=== PATIENT | male | born 1945 | race Caucasian/White ===

== ENCOUNTER 2017-06-13 17:44 | Emergency (ER) | payer MEDICARE ==
[2017-06-13 17:53] VITALS: BP 159/92; PULSE 94; RESP 18; TEMP 98.6
[2017-06-13] MEDS ORDERED: SODIUM CHLORIDE 0.9% 500 ML IV STA (17:59)
[2017-06-13] MEDS ORDERED: RX INFO: IV CONTRAST WAS GIVEN 1 EACH MISC MISCELLANE PRN (17:59)
[2017-06-13] MEDS ORDERED: ONDANSETRON 4 MG/2 ML VIAL IVP STA (17:59)
[2017-06-13] MEDS ORDERED: MORPHINE SULFATE 5 MG/ML SYRINGE IV STA (17:59)
--- NOTE | 2017-06-13 18:16 | ED ---
Abdominal Pain HPI - General Chief Complaint: Abdominal Pain Stated Complaint: Stomach pain Time Seen by Provider: 06/13/17 17:54 Source: patient, RN notes reviewed Mode of arrival: ambulatory Limitations: no limitations - History of Present Illness Initial Comments: This a 71-year-old male presents emergency Department with chief complaint of lower abdominal pain. Patient states that he's had a known umbilical hernia states he was working on a truck today wrenching and states that he noticed it had increase in pain from his umbilicus down. Patient denies nausea, vomiting, diarrhea constipation. He states nothing makes the pain feel better at this time states worse when pressed over the area. He's never been evaluated by a surgeon for this hernia. Patient did not take any pain medications prior arrival. Patient states pain is pretty bad at this time. Patient has NO KNOWN DRUG ALLERGIES. - Related Data Home Medications Medication Instructions Recorded Confirmed Ascorbic Acid [Vitamin C] 500 mg PO DAILY 06/13/17 06/13/17 HYDROcodone/APAP 10-325MG [[place] 1 tab PO BID PRN 06/13/17 06/13/17 10-325] Ibuprofen [Advil] 1,000 mg PO Q8HR PRN 06/13/17 06/13/17 Multivitamins, Thera [Multivitamin 1 tab PO DAILY 06/13/17 06/13/17 (formulary)] Allergies Allergy/AdvReac Type Severity Reaction Status Date / Time No Known Allergies Allergy Verified 06/13/17 18:07 Review of Systems ROS Statement: Those systems with pertinent positive or pertinent negative responses have been documented in the HPI. ROS Other: All systems not noted in ROS Statement are negative. Past Medical History Past Medical History: Hyperlipidemia, Hypertension Additional Past Medical History / Comment(s): Umbilical hernia History of Any Multi-Drug Resistant Organisms: None Reported Past Surgical History: Orthopedic Surgery Additional Past Surgical History / Comment(s): nose surgery, ANKLE SURGERY ON RIGHT ANKLE WITH SCREWS AND PLATES Past Anesthesia/Blood Transfusion Reactions: No Reported Reaction Past Psychological History: Depression Smoking Status: Current every day smoker Past Alcohol Use History: None Reported Past Drug Use History: Marijuana - Past Family History Father Family Medical History: No Reported History General Exam Limitations: no limitations General appearance: alert, in no apparent distress Head exam: Present: atraumatic, normocephalic, normal inspection Respiratory exam: Present: normal lung sounds bilaterally. Absent: respiratory distress, wheezes, rales, rhonchi, stridor Cardiovascular Exam: Present: regular rate, normal rhythm, normal heart sounds. Absent: systolic murmur, diastolic murmur, rubs, gallop, clicks GI/Abdominal exam: Present: soft, tenderness (Periumbilical tenderness and lower abdominal), normal bowel sounds, hernia (Umbilical hernia noted which is reducible). Absent: distended, guarding, rebound, rigid Back exam: Absent: CVA tenderness (R), CVA tenderness (L) Neurological exam: Present: alert, oriented X3, CN II-XII intact Skin exam: Present: warm, dry, intact, normal color. Absent: rash Course Vital Signs 06/13/17 17:50 Temperature 98.6 F Pulse Rate 94 Respiratory 18 Rate Blood Pressure 159/92 O2 Sat by Pulse 96 Oximetry Medical Decision Making - Medical Decision Making 71-year-old male present emergency department for abdominal pain, umbilical hernia. Patient worsening pain of his umbilical hernia. Patient hernia was reduced in the emergency department. Patient still complained of some discomfort initially underwent lab work which was unremarkable CT ordered but patient refused stating that his pain has completely resolved. We did discuss return parameters. Patient will follow-up with on-call surgery. - Lab Data Result diagrams: 06/13/17 18:07 06/13/17 18:07 Lab Results 06/13/17 06/13/17 06/13/17 Range/Units 18:07 18:07 18:07 WBC 7.9 (3.8-10.6) k/uL RBC 4.78 (4.30-5.90) m/uL Hgb 16.3 (13.0-17.5) gm/dL Hct 47.7 (39.0-53.0) % MCV 99.8 (80.0-100.0) fL MCH 34.0 (25.0-35.0) pg MCHC 34.1 (31.0-37.0) g/dL RDW 12.6 (11.5-15.5) % Plt Count 191 (150-450) k/uL Neutrophils % 67 % Lymphocytes % 20 % Monocytes % 6 % Eosinophils % 4 % Basophils % 1 % Neutrophils # 5.3 (1.3-7.7) k/uL Lymphocytes # 1.6 (1.0-4.8) k/uL Monocytes # 0.5 (0-1.0) k/uL Eosinophils # 0.3 (0-0.7) k/uL Basophils # 0.1 (0-0.2) k/uL PT (9.0-12.0) sec INR (<1.2) APTT (22.0-30.0) sec Sodium 139 (137-145) mmol/L Potassium 4.1 (3.5-5.1) mmol/L Chloride 106 (98-107) mmol/L Carbon Dioxide 23 (22-30) mmol/L Anion Gap 10 mmol/L BUN 17 (9-20) mg/dL Creatinine 0.90 (0.66-1.25) mg/dL Est GFR (MDRD) Af Amer >60 (>60 ml/min/1.73 sqM) Est GFR (MDRD) Non-Af >60 (>60 ml/min/1.73 sqM) Glucose 139 H (74-99) mg/dL Plasma Lactic Acid Yefri 1.2 (0.7-2.0) mmol/L Calcium 9.6 (8.4-10.2) mg/dL Total Bilirubin 0.4 (0.2-1.3) mg/dL AST 42 (17-59) U/L ALT 46 (21-72) U/L Alkaline Phosphatase 140 H (38-126) U/L Total Protein 7.4 (6.3-8.2) g/dL Albumin 4.4 (3.5-5.0) g/dL Amylase 74 (30-110) U/L Lipase 175 (23-300) U/L Urine Color Urine Appearance (Clear) Urine pH (5.0-8.0) Ur Specific [place] (1.001-1.035) Urine Protein (Negative) Urine Glucose (UA) (Negative) Urine Ketones (Negative) Urine Blood (Negative) Urine Nitrite (Negative) Urine Bilirubin (Negative) Urine Urobilinogen (<2.0) mg/dL Ur Leukocyte Esterase (Negative) Urine RBC (0-5) /hpf Urine WBC (0-5) /hpf Urine Mucus (None) /hpf 06/13/17 06/13/17 Range/Units 18:07 18:23 WBC (3.8-10.6) k/uL RBC (4.30-5.90) m/uL Hgb (13.0-17.5) gm/dL Hct (39.0-53.0) % MCV (80.0-100.0) fL MCH (25.0-35.0) pg MCHC (31.0-37.0) g/dL RDW (11.5-15.5) % Plt Count (150-450) k/uL Neutrophils % % Lymphocytes % % Monocytes % % Eosinophils % % Basophils % % Neutrophils # (1.3-7.7) k/uL Lymphocytes # (1.0-4.8) k/uL Monocytes # (0-1.0) k/uL Eosinophils # (0-0.7) k/uL Basophils # (0-0.2) k/uL PT 9.9 (9.0-12.0) sec INR 1.0 (<1.2) APTT 24.0 (22.0-30.0) sec Sodium (137-145) mmol/L Potassium (3.5-5.1) mmol/L Chloride (98-107) mmol/L Carbon Dioxide (22-30) mmol/L Anion Gap mmol/L BUN (9-20) mg/dL Creatinine (0.66-1.25) mg/dL Est GFR (MDRD) Af Amer (>60 ml/min/1.73 sqM) Est GFR (MDRD) Non-Af (>60 ml/min/1.73 sqM) Glucose (74-99) mg/dL Plasma Lactic Acid Yefri (0.7-2.0) mmol/L Calcium (8.4-10.2) mg/dL Total Bilirubin (0.2-1.3) mg/dL AST (17-59) U/L ALT (21-72) U/L Alkaline Phosphatase (38-126) U/L Total Protein (6.3-8.2) g/dL Albumin (3.5-5.0) g/dL Amylase (30-110) U/L Lipase (23-300) U/L Urine Color Yellow Urine Appearance Clear (Clear) Urine pH 5.0 (5.0-8.0) Ur Specific [place] 1.014 (1.001-1.035) Urine Protein Negative (Negative) Urine Glucose (UA) Negative (Negative) Urine Ketones Negative (Negative) Urine Blood Negative (Negative) Urine Nitrite Negative (Negative) Urine Bilirubin Negative (Negative) Urine Urobilinogen <2.0 (<2.0) mg/dL Ur Leukocyte Esterase Trace H (Negative) Urine RBC 1 (0-5) /hpf Urine WBC 2 (0-5) /hpf Urine Mucus Rare H (None) /hpf Disposition Clinical Impression: Umbilical hernia, Abdominal pain Disposition: HOME SELF-CARE Condition: Stable Instructions: Umbilical Hernia (ED) Additional Instructions: Please return to the Emergency Department if symptoms worsen or any other concerns. Referrals: Luca Pandya MD [Primary Care Provider] - 1-2 days Diogo Hooker MD [STAFF PHYSICIAN] - 1-2 days Time of Disposition: 18:49
[2017-06-13 18:23] LABS: Basophils # (A) 0.1 k/uL (0-0.2); Basophils % (A) 1 %; Eosinophils # (A) 0.3 k/uL (0-0.7); Eosinophils % (A) 4 %; HCT 47.7 % (39.0-53.0); HGB 16.3 gm/dL (13.0-17.5); Lymphocytes # (A) 1.6 k/uL (1.0-4.8); Lymphocytes % (A) 20 %; MCHC 34.1 g/dL (31.0-37.0); MCV 99.8 fL (80.0-100.0); Mean Platelet Volume 6.7; Monocytes # (A) 0.5 k/uL (0-1.0); Monocytes % (A) 6 %; Neutrophils # (A) 5.3 k/uL (1.3-7.7); Neutrophils % (A) 67 %; Platelet Count 191 k/uL (150-450); RBC 4.78 m/uL (4.30-5.90); RDW 12.6 % (11.5-15.5); WBC 7.9 k/uL (3.8-10.6)
[2017-06-13 18:25] LABS: Prothrombin Time 9.9 sec (9.0-12.0)
[2017-06-13 18:27] LABS: ALT 46 U/L (21-72); AST 42 U/L (17-59); Albumin 4.4 g/dL (3.5-5.0); Alkaline Phosphatase 140 U/L (38-126); Amylase 74 U/L (30-110); Anion Gap 10 mmol/L; Blood Urea Nitrogen 17 mg/dL (9-20); Calcium 9.6 mg/dL (8.4-10.2); Carbon Dioxide 23 mmol/L (22-30); Chloride 106 mmol/L (98-107); Glucose 139 mg/dL (74-99); Lipase 175 U/L (23-300); Potassium 4.1 mmol/L (3.5-5.1); Sodium 139 mmol/L (137-145); Total Bilirubin 0.4 mg/dL (0.2-1.3); Total Protein 7.4 g/dL (6.3-8.2)
[2017-06-13 18:29] LABS: Appearance,Urine Clear (Clear); Bilirubin,Urine Negative (Negative); Blood,Urine Negative (Negative); Color,Urine Yellow; Glucose,Urine (UA) Negative (Negative); Ketones,Urine Negative (Negative); Leukocyte Esterase,Urine Trace (Negative); Mucus,Urine Rare /hpf; Nitrite,Urine Negative (Negative); Protein,Urine Negative (Negative); RBC,Urine 1 /hpf (0-5); Specific Gravity,Urine 1.014 (1.001-1.035); Urobilinogen,Urine <2.0 mg/dL (<2.0); WBC,Urine 2 /hpf (0-5)
== END 2017-06-13 18:55 | disposition home or self-care (01) ==
LOC: EC 17:44
DX: K42.9 Umbilical hernia without obstruction or gangrene (principal); F17.200 Nicotine dependence, unspecified, uncomplicated; Z79.899 Other long term (current) drug therapy; Z53.29 Procedure and treatment not carried out because of patient's decision for other reasons
CPT/HCPCS: 99284; 96374; 96361; 36415; 80053; 82150; 83605; 83690; 85025; 85610; 85730; 81001; J2405

== ENCOUNTER → 2021-03-26 | Outpatient (CLI) | payer MEDICARE | END | disposition home or self-care (01) | LOC: LABPAT 15:41 | PROVIDERS: ATTEND Orthopaedic Surgery | DX: Z01.812 Encounter for preprocedural laboratory examination (principal); M16.12 Unilateral primary osteoarthritis, left hip; Z22.322 Carrier or suspected carrier of Methicillin resistant Staphylococcus aureus | CPT/HCPCS: 86850; 86900; 86901; 87070 ==

== ENCOUNTER 2021-06-21 11:02 | Day surgery (SDC) | payer MEDICARE ==
[2021-05-31 15:26] VITALS: BMI 34.8
--- NOTE | 2021-06-20 11:07 | HP ---
HISTORY AND PHYSICAL DATE OF SURGERY: 06/21/2021 Aamir Dupree is a 75-year-old gentleman seen with symptomatic left hip osteoarthritis. Treatment options were discussed with him. He elected to proceed with direct anterior left total hip arthroplasty. Consent was obtained. Medical clearance was provided by Dr. Kincaid. PAST MEDICAL HISTORY: Hypertension, hyperlipidemia, tdx-rhzdfru-uquubpzil diabetes. PAST SURGICAL HISTORY: Ankle surgery. DAILY MEDICATIONS: Glipizide, lisinopril, simvastatin, Cialis. ALLERGIES: NONE REPORTED. SOCIAL HISTORY: He denies tobacco use. PHYSICAL EVALUATION OF THE LEFT HIP: He has very limited range of motion with severe pain. Positive hip impingement sign. Straight-leg raise negative. His distal neurovascular exam is intact. Radiographs of the left hip reveal severe osteoarthritic changes. IMPRESSION: 1. Left hip osteoarthritis. 2. Hypertension. 3. Hyperlipidemia. 4. Rgr-onjhdua-xmwhlokmu diabetes. PLAN: Direct anterior left total hip arthroplasty. MMODL / IJN: [id number] /
[~2021-06-21 11:02] MED LIST: ACETAMINOPHEN TAB 500 MG TAB PO PRN; DEXAMETHASONE SOD PHOSPHATE 4 MG/ML 1 ML VIAL IV ONE; LIDOCAINE 1% (10MG/ML) FOR IV START INTRADERMA PRN; MELOXICAM 7.5 MG TAB PO PRN; MIDAZOLAM 2 MG/2 ML VIAL IV PRN; ONDANSETRON 4 MG/2 ML VIAL IVP ONE; TRANEXAMIC ACID 1,000 MG in SODIUM CHLORIDE 0.9% 100 ML IVPB PRN
[2021-06-21] MEDS: LACTATED RINGERS 1,000 ML IV SCH ×2 (12:21→18:09)
[2021-06-21 12:28] LABS: Glucose,Whole Blood 188 mg/dL (75-99)
[2021-06-21] MEDS ORDERED: LIDOCAINE 1% INJ 10MG/ML (20 ML MDV) ONE (13:03)
[2021-06-21] MEDS ORDERED: TRANEXAMIC ACID 1,000 MG/10 ML VIAL ONE (13:03)
[2021-06-21] MEDS ORDERED: GLYCOPYRROLATE 0.2 MG/ML 2 ML VIAL ONE (13:03)
[2021-06-21] MEDS ORDERED: PROPOFOL 10 MG/ML 20 ML VIAL IV ONE (13:03)
[2021-06-21] MEDS ORDERED: NEOSTIGMINE 1 MG/ML 10 ML VIAL ONE (13:03)
[2021-06-21] MEDS ORDERED: PHENYLEPHRINE-0.9% NACL SYG 1,000 MCG/10 ML SYRINGE ONE (13:03)
[2021-06-21] MEDS ORDERED: SODIUM CHLORIDE 0.9% 100 ML BAG ONE (13:03)
[2021-06-21] MEDS ORDERED: HYDROmorphone (PF) 1 MG/ML ONE (13:03)
[2021-06-21] MEDS ORDERED: ROCURONIUM 10 MG/ML (5 ML VIAL) IV ONE (13:03)
[2021-06-21] MEDS ORDERED: SUCCINYLCHOLINE CHLORIDE VIAL 200 MG/10 ML VIAL IV ONE (13:03)
[2021-06-21] MEDS ORDERED: MIDAZOLAM 2 MG/2 ML VIAL ONE (13:03)
[2021-06-21] MEDS ORDERED: fentaNYL (PF) 50 MCG/ML 2 ML AMP ONE (13:03)
[2021-06-21] MEDS ORDERED: ceFAZolin 1,000 MG in SODIUM CHLORIDE 0.9% 1,000 ML IRRIGATION ONE (13:35)
[2021-06-21] MEDS ORDERED: ROPIVACAINE/EPI/CLONIDINE/KET 50 ML SYRINGE MISCELLANE PRN (13:46)
[2021-06-21] MEDS ORDERED: LACTATED RINGERS 1,000 ML IV ONE ×2 (14:18→14:37)
--- NOTE | 2021-06-21 14:35 | FL ---
EXAMINATION TYPE: FL guidance operating room DATE OF EXAM: 06/21/2021 HISTORY: Fluoroscopy time 10 seconds of fluoroscopy provided. IMPRESSION: 1. Fluoroscopy time.
--- NOTE | 2021-06-21 14:35 | XR ---
EXAMINATION TYPE: XR Hip Limited LT DATE OF EXAM: 06/21/2021 COMPARISON: NONE HISTORY: Postop TECHNIQUE: One view submitted. FINDINGS: There is postsurgical change in near anatomic alignment. There is soft tissue edema and emphysema. IMPRESSION: 1. Postoperative change. Appears in near-anatomic alignment.
[2021-06-21] MEDS ORDERED: NALOXONE 0.4 MG/ML 1 ML VIAL IV PRN (14:37)
[2021-06-21] MEDS ORDERED: ONDANSETRON 4 MG/2 ML VIAL IVP PRN (14:37)
[2021-06-21] MEDS ORDERED: HYDROcodone/APAP 5-325MG 1 EACH TAB PO PRN (14:37)
[2021-06-21] MEDS ORDERED: HYDROmorphone 0.5 MG/0.5 ML SYRINGE IVP PRN ×2 (14:37)
[2021-06-21] MEDS ORDERED: HYDROmorphone 0.2 MG/1 ML SYRINGE IM PRN (14:37)
--- NOTE | 2021-06-21 14:37 | P.OP ---
Date of Procedure: 06/21/21 Preoperative Diagnosis: Left hip osteoarthritis Postoperative Diagnosis: Left hip osteoarthritis Procedure(s) Performed: Direct anterior left total hip arthroplasty Implants: 1. Depuy Corail size 15 high offset collared press-fit femoral stem 2. Depuy [place] 62 mm press-fit acetabular shell 3. Depuy [place] +4 neutral polyethylene acetabular liner 36 mm ID 62 mm OD 4. Biolox delta ceramic femoral head +1.5 36 mm Anesthesia: JODIA, local Surgeon: Shar Juarez Color Consultant #1: Sean Keller Estimated Blood Loss (ml): 200 Pathology: other (Femoral head) Condition: stable Disposition: PACU Indications for Procedure: 75-year-old patient seen with symptomatic left hip osteoarthritis. After having treatment options discussed, he elected to proceed with direct anterior left total hip arthroplasty. Operative Findings: See description of procedure Description of Procedure: The patient was taken to the operative suite. Patient underwent a general anesthetic by the department of anesthesia. Patient was then transferred to the [place] table. Patient was given preoperative IV antibiotics and TXA. Both lower extremities were placed in standard leg spars. The hip was then prepped and draped in the normal sterile orthopedic fashion. A standard anterior incision was made beginning 3 cm lateral and 1 cm distal to the ASIS extending 10 cm. Dissection was then carried down through the subcutaneous soft tissues down to the fascia overlying the tensor fascia ambika. An incision was now made through the fascia. Careful dissection was taken down exposing the tensor fascia ambika muscle. A Cobra retractor was now placed along the medial femoral neck and a second one along the lateral femoral neck. The venous circumflex vessels were now identified, cauterized and clipped. We identified the anterior hip capsule. An incision was made through the hip capsule along the lateral border. I performed a partial anterior capsulectomy. Retractors were now placed around the femoral neck itself. A femoral neck cut was now made with a sagittal saw. It was completed with an osteotome at the lateral neck area. The femoral head was now removed without difficulty. The extremity was now rotated to 60 of external rotation. It was locked in position. Residual labrum was now debrided out. Serial reaming was performed of the acetabulum while Gilbert LEMUS assisted holding an anterior retractor for exposure. Once we reached the appropriate size and a trial was position and fit nicely. The appropriate size was now chosen opened and made available. It was introduced into the acetabulum without difficulty. The C-arm/fluoroscopy was now brought into the operative field. We made sure we had a true AP pelvic view. We now under direct C-arm/fluoroscopy introduced into the acetabular component with appropriate version and inclination. I held the cup in appropriate position well Gilbert LEMUS used a mallet to seat the acetabular component. I noted the component now to be well seated and stable. Acetabular cup introduce her was removed. The C-arm was pulled back. An appropriate liner was introduced and clicked into position. It was felt to be stable. At this point retractors were removed. The extremity was now placed into 140 external rotation with no traction. The leg was now dropped to the ground and adducted. Appropriate retractors were now positioned along the proximal femur. We also placed our femoral look into position. Additional capsular releasing was performed to gain access to the proximal femur. We now used a box osteotome. A canal finder was now utilized. Serial broaching was now performed with the assistance of Gilbert LEMUS tapping the broaches down with a mallet while held the broach in appropriate rotation and position. This was done until we reached the appropriate size with good overall rotational stability. Appropriate calcar planing was performed. A trial head/neck was placed into position. The hip was now reduced. The C- arm/fluoroscopy was brought back into the operative field. I obtained AP pelvis demonstrating adequate leg length. The trial components appeared appropriately sized and positioned. The C-arm/fluoroscopy was pulled back. Retractors were repositioned and the hip was dislocated. The leg was again taken down to the ground and adducted. Appropriate retractors were repositioned as well as the femoral hook. All trial components were removed. The femoral implant was opened along with the femoral head. The femoral implant was introduced on the appropriate handle into our pre-broached area. I held the component position well Gilbert LEMUS used a mallet to seat the femoral component. The femoral component was now noted to be well seated and stable.. The femoral head was introduced with good positioning and fixation noted. Retractors were now removed. The hip was now reduced. There appeared be good positioning of the hip confirmed on intraoperative fluoroscopy. Spot films were obtained to document this. A second gram of TXA was given. The deep and superficial soft tissues were infiltrated with local analgesic. Bipolar cautery had been ut ilized intermittently through the procedure for hemostasis. The wound was irrigated copiously with pulse lavage mechanical irrigation. The fascia was repaired with Vicryl suture. The subcutaneous soft tissues were repaired in layers with Vicryl suture. The skin was approximated with pernio/Dermabond. Sterile dressings were applied. Patient was then awakened, transferred to a bed and taken to recovery in stable condition. Gilbert LEMUS assisted with the complex procedure.
[2021-06-21] MEDS: HYDROmorphone 0.5 MG/0.5 ML SYRINGE IVP PRN ×3 (15:06→16:03)
[2021-06-21 15:17] LABS: Glucose,Whole Blood 197 mg/dL (75-99)
[2021-06-21 20:43] LABS: Glucose,Whole Blood 257 mg/dL (75-99)
--- NOTE | 2021-06-22 02:46 | P.CONS ---
History of Present Illness - Reason for Consult Consult date: 06/21/21 medical management Requesting physician: Shar Juarez - Chief Complaint left hip OA - History of Present Illness 75-year-old male with hypertension diabetes mellitus Patient comes in for scheduled left hip total arthroplasty due to severe advanced osteoarthritis. Patient tolerated procedure well patient was able to walk using a walker and he tolerated by mouth intake no observed immediate postop complications pain is well tolerated and controlled Patient has no new medical concerns Patient chews tobacco home and is asking for nicotine gum Review of Systems Pertinent positives as noted in HPI. All other systems were reviewed and are negative Past Medical History Past Medical History: Diabetes Mellitus, Hyperlipidemia, Hypertension, Osteoarthritis (OA) Additional Past Medical History / Comment(s): Umbilical hernia History of Any Multi-Drug Resistant Organisms: None Reported Past Surgical History: Orthopedic Surgery Additional Past Surgical History / Comment(s): NOSE SURGERY., ANKLE SURGERY RIGHT ANKLE WITH SCREWS AND PLATES Past Anesthesia/Blood Transfusion Reactions: No Reported Reaction, Unable to Obtain Additional Past Anesthesia/Blood Transfusion Reaction / Comm: PT ADOPTED. Past Psychological History: Anxiety, Depression Smoking Status: Former smoker Past Alcohol Use History: Occasional Additional Past Alcohol Use History / Comment(s): QUIT SMOKING 3 YRS AGO, HX OF 2 PPD.,. CHEWING TOBACCO CURRENTLY. Past Drug Use History: Marijuana Additional Drug Use History / Comment(s): OCCASSIONAL MARIJUANA USE - Past Family History Father Family Medical History: Cancer Medications and Allergies Home Medications Medication Instructions Recorded Confirmed Type Ascorbic Acid [Vitamin C] 1,000 mg PO DAILY 06/13/17 06/14/21 History HYDROcodone/APAP 10-325MG [[place] 1 tab PO TID PRN 06/13/17 06/21/21 History 10-325] Ibuprofen [Advil] 800 mg PO DIRECTED PRN 06/13/17 06/14/21 History Acetaminophen/Diphenhydramine 1 tab PO HS PRN 05/31/21 06/21/21 History [Tylenol PM 500-25mg] Bismuth Subsalicylate 262 mg PO DIRECTED PRN 05/31/21 06/14/21 History [Pepto-Bismol] Multivit-Min/Folic/Vit K/Lycop 1 each PO DAILY 05/31/21 06/14/21 History [Men's Multivitamin Tablet] Sertraline [Zoloft] 50 mg PO QAM 05/31/21 06/14/21 History glipiZIDE [Glucotrol] 10 mg PO DAILY 05/31/21 06/21/21 History guaiFENesin [Mucinex] 1,200 mg PO DIRECTED 05/31/21 06/21/21 History lisinopriL 40 mg PO QAM 05/31/21 06/14/21 History L.acidoph,Paracasei, B.lactis 1 dose PO DAILY 06/14/21 06/21/21 History [Probiotic] Allergies Allergy/AdvReac Type Severity Reaction Status Date / Time No Known Allergies Allergy Verified 06/21/21 11:43 Physical Exam Vitals: Vital Signs Temp Pulse Pulse Resp BP BP Pulse Ox 06/21/21 20:00 98.4 F 91 18 117/68 96 06/21/21 19:08 18 06/21/21 16:55 94 16 121/55 96 06/21/21 16:40 88 16 132/55 97 06/21/21 16:25 86 16 135/64 94 L 06/21/21 16:10 91 16 126/54 95 06/21/21 15:56 89 16 122/56 92 L 06/21/21 15:40 86 16 138/62 95 06/21/21 15:24 83 16 141/67 97 06/21/21 15:09 73 16 130/61 97 06/21/21 14:54 97.1 F L 67 18 119/59 97 06/21/21 12:00 98.5 F 69 18 135/58 98 Intake and Output 06/21/21 06/21/21 06/22/21 14:59 22:59 06:59 Intake Total 1151 600 Output Total 200 Balance 951 600 Intake: IV 1151 600 Output: Estimated Blood Loss 200 Other: Voiding Method Toilet Urinal # Voids 1 Weight 119.2 kg 119.2 kg Constitutional: No acute distress, conversant, pleasant Eyes: Anicteric sclerae, moist conjunctiva, Pupils equal round reactive to light ENMT: NC/AT Oropharynx clear, no erythema, or exudates Neck: Supple, FROM, no masses, or JVD No carotid bruits No thyromegaly Lungs: Clear to auscultation Clear to percussion Normal respiratory effort, no accessory muscle use Cardiovascular: Heart regular in rate and rhythm, No murmurs, gallops, or rubs No peripheral edema Abdominal: Soft Nontender, no guarding, rebound or rigidity Abdomen moving with respiration Normoactive bowel sounds No hepatomegaly, No splenomegaly No palpable mass No abdominal wall hernia noted Skin: Normal temperature, tone, texture, turgor No induration No subcutaneous nodules No rash, lesions No ulcers Extremities: No digital cyanosis No clubbing Pedal pulses intact and symmetrical Radial pulses intact and symmetrical No calf tenderness Psychiatric: Alert and oriented to person, place and time Appropriate affect fair judgement Neuro Muscles Strength 5/5 in all 4 extremities limited exam over her left lower extremity due to recent surgery Sensation to light touch grossly present throughout Cranial nerves II-XII grossly intact No focal sensory deficits Lymphatics: no palpable cervical or supraclavicular , or inguinal lymph nodes Results Labs: Abnormal Lab Results - Last 24 Hours (Table) 06/21/21 06/21/21 06/21/21 Range/Units 12:17 15:15 20:42 POC Glucose (mg/dL) 188 H 197 H 257 H (75-99) mg/dL Assessment and Plan Assessment: Left hip osteoarthritis status post total hip replacement postoperative day 0 Pain control and DVT prophylaxis per orthopedics Chronic conditions Diabetes mellitus, insulin sliding scale, hold oral hypoglycemic agents Hyperlipidemia Hypertension resume lisinopril Follow-up BMP and CBC in the morning Patient chews tobacco, nicotine gum prn Thank you for allowing us to participate in the care of this patient. Do not hesitate to contact us with questions. Someone can be reached from the [facility] hospitalist group at all hours of the day at [phone].
[2021-06-22] MEDS ORDERED: NICOTINE GUM (POLACRILEX) 2 MG GUM BUCCAL PRN (02:48)
[2021-06-22 03:24] VITALS: TEMP 98.1
[2021-06-22] MEDS: LACTATED RINGERS 1,000 ML IV SCH ×2 (05:47→06:03)
[2021-06-22 06:41] LABS: Glucose,Whole Blood 180 mg/dL (75-99)
[2021-06-22] MEDS ORDERED: INSULIN ASPART (NovoLOG) 100 UNIT/ML VIAL SQ SCH (07:30)
[2021-06-22] MEDS: HYDROcodone/APAP 5-325MG 1 EACH TAB PO PRN ×2 (07:51→12:23)
[2021-06-22] MEDS: INSULIN ASPART (NovoLOG) 100 UNIT/ML VIAL SQ SCH ×2 (08:01→12:17)
[2021-06-22] MEDS ORDERED: lisinopriL 20 MG TAB PO SCH (09:00)
[2021-06-22] MEDS ORDERED: SERTRALINE 50 MG TAB PO SCH (09:00)
[2021-06-22 09:35] LABS: Basophils # (A) 0.02 X 10*3/uL (0.00-0.10); Basophils % (A) 0.2 %; Eosinophils # (A) 0.01 X 10*3/uL (0.04-0.35); Eosinophils % (A) 0.1 %; HCT 41.7 % (39.6-50.0); HGB 13.1 g/dL (13.0-17.0); Lymphocytes # (A) 1.25 X 10*3/uL (0.90-5.00); Lymphocytes % (A) 10.1 %; MCH 31.2 pg (27.0-32.0); MCHC 31.4 g/dL (32.0-37.0); MCV 99.3 fL (80.0-97.0); Mean Platelet Volume 9.3 fL (9.5-12.2); Monocytes # (A) 1.43 X 10*3/uL (0.20-1.00); Monocytes % (A) 11.5 %; Neutrophils # (A) 9.68 X 10*3/uL (1.80-7.70); Neutrophils % (A) 77.8 %; Platelet Count 191 X 10*3/uL (140-440); RDW 13.5 % (11.5-14.5); WBC 12.43 X 10*3/uL (4.50-10.00)
[2021-06-22 09:50] LABS: African American GFR (CKD) 86.3 (60.0-200.0); Anion Gap 13.9 mmol/L (10.00-18.00); BUN/Creat Ratio 19.82 Ratio (12.00-20.00); Blood Urea Nitrogen 19.8 mg/dL (9.0-27.0); Carbon Dioxide 23.8 mmol/L (20.0-27.5); Non-African American GFR(CKD) 74.4 (60.0-200.0); Potassium 4.8 mmol/L (3.5-5.5)
--- NOTE | 2021-06-22 11:05 | P.DS ---
Providers Date of admission: 06/21/2021 Expected date of discharge: 06/22/21 Attending physician: Shar Juarez Consults: 06/21/21 18:57 Consult Physician Routine Consulting Provider: Alma Larson Consult Reason/Comments: medical management Do you want consulting provider notified?: Yes Primary care physician: Stated None Hospital Course: Date of admission: 06/21/2021 Date of discharge: 06/22/2021 Admission diagnosis: Left hip osteoarthritis Discharge diagnosis: Same Attending physician: Dr. Juarez Surgical procedures: Left total hip arthroplasty Brief history: Patient is a 75-year-old male with a history of progressive primary left hip osteoarthritis. At this point patient has failed conservative treatment measures and has opted to proceed with a elective left total hip arthroplasty. Hospital course: Details of patient's surgery can be found in operative report. Patient tolerated the procedure well and was subsequently transported to orthopedic floor. Patient's orthopeidc and medical care was provided daily. Patient had daily laboratory tests performed for evaluation of overall blood counts. Patient had daily physical therapy to include strengthening range of motion as well as education with walker ambulation. Patient was treated with Lovenox for their postoperative DVT prophylaxis during their inpatient stay. Patient was noted to have a relatively uneventful postoperative course. Patient reported satisfactory pain control with oral pain medications by postoperative day 1. Patient showed satisfactory progress with physical therapy. Patient moved steadily through the program and had no difficulty meeting the goals by postoperative day 1. Given patient's otherwise satisfactory course and having met physical therapy goals, plan is to discharge patient home on postoperative day 1. Discharge condition/disposition: Patient will be discharged home in stable condition. Discharge medications: Instructions are given on resumption of patient's normal daily medications per primary care recommendation, in addition patient will be prescribed [place] 7.5 mg/325 mg; aspirin 81 mg twice a day 30 days; Colace. Discharge instructions: 1. Wound care and infection precautions, keep incision dry and covered while showering, no lotions, creams, moisturizers. No soaking, tubs, pools, hottubs. Do not scrub over the incision. 2. Weight-bear as tolerated with walker / cane until follow-up. 3. Ice and elevate when necessary. Do not exceed 20 minutes per hour with ice pack. 4. Utilize compression sleeve until seen at first follow up appointment. 5. Visiting nursing care. 6. Home physical therapy. 7. Pain meds and anticoagulants per prescription. 8. Pain medication has potential to cause constipation. Increase oral fluid and fiber intake. Contact primary care provider if you have not had a bowel movement within 48 hours after discharge 9. No anti-inflammatory medication until discussed at first post operative visit, this including Motrin, Aleve, Mobic, Diclofenac. 10. Follow up in office at 2 weeks postop with Gilbert Keller PA-C / Neo Lange PA-C 11. Follow up with your primary care doctor 7-10 days after discharge. 12. Contact [facility] with any questions, . Keep incision clean, dry, intact. While showering, cover silver foam dressing was Saran wrap. Silver foam dressing may be removed in 7 days. Medications: Colace; [place] 7.5 mg/25 mg; aspirin 81 mg twice a day 30 days Assessment: Left hip osteoarthritis Procedures: Left total hip arthroplasty Patient Condition at Discharge: Good Plan - Discharge Summary Discharge Rx Participant: No New Discharge Prescriptions: New HYDROcodone/APAP 7.5-325MG [[place] 7.5] 1 each PO Q6HR PRN #28 tab PRN Reason: Pain Aspirin [Adult Low Dose Aspirin EC] 81 mg PO BID #60 tab Docusate [Colace] 100 mg PO DAILY #30 capsule Discontinued HYDROcodone/APAP 10-325MG [[place] 10-325] 1 tab PO TID PRN PRN Reason: Pain No Action Ibuprofen [Advil] 800 mg PO DIRECTED PRN PRN Reason: Pain Ascorbic Acid [Vitamin C] 1,000 mg PO DAILY lisinopriL 40 mg PO QAM guaiFENesin [Mucinex] 1,200 mg PO DIRECTED glipiZIDE [Glucotrol] 10 mg PO DAILY Multivit-Min/Folic/Vit K/Lycop [Men's Multivitamin Tablet] 1 each PO DAILY Sertraline [Zoloft] 50 mg PO QAM Acetaminophen/Diphenhydramine [Tylenol PM 500-25mg] 1 tab PO HS PRN PRN Reason: Insomnia Bismuth Subsalicylate [Pepto-Bismol] 262 mg PO DIRECTED PRN PRN Reason: Diarrhea L.acidoph,Paracasei, B.lactis [Probiotic] 1 dose PO DAILY Discharge Medication List Ascorbic Acid [Vitamin C] 1,000 mg PO DAILY 06/13/17 [History] Ibuprofen [Advil] 800 mg PO DIRECTED PRN 06/13/17 [History] Acetaminophen/Diphenhydramine [Tylenol PM 500-25mg] 1 tab PO HS PRN 05/31/21 [History] Bismuth Subsalicylate [Pepto-Bismol] 262 mg PO DIRECTED PRN 05/31/21 [History] Multivit-Min/Folic/Vit K/Lycop [Men's Multivitamin Tablet] 1 each PO DAILY 05/31/21 [History] Sertraline [Zoloft] 50 mg PO QAM 05/31/21 [History] glipiZIDE [Glucotrol] 10 mg PO DAILY 05/31/21 [History] guaiFENesin [Mucinex] 1,200 mg PO DIRECTED 05/31/21 [History] lisinopriL 40 mg PO QAM 05/31/21 [History] L.acidoph,Paracasei, B.lactis [Probiotic] 1 dose PO DAILY 06/14/21 [History] Aspirin [Adult Low Dose Aspirin EC] 81 mg PO BID #60 tab 06/22/21 [Rx] Docusate [Colace] 100 mg PO DAILY #30 capsule 06/22/21 [Rx] HYDROcodone/APAP 7.5-325MG [[place] 7.5] 1 each PO Q6HR PRN #28 tab 06/22/21 [Rx] Follow up Appointment(s)/Referral(s): [facility], [NON-STAFF] - 1-2 Days Sean Keller PAC [PHYSICIAN [employer]STER] - 07/07/21 3:20 pm Activity/Diet/Wound Care/Special Instructions: Discharge instructions: 1. Wound care and infection precautions, keep incision dry and covered while showering, no lotions, creams, moisturizers. No soaking, tubs, pools, hottubs. Do not scrub over the incision. 2. Weight-bear as tolerated with walker / cane until follow-up. 3. Ice and elevate when necessary. Do not exceed 20 minutes per hour with ice pack. 4. Utilize compression sleeve until seen at first follow up appointment. 5. Visiting nursing care. 6. Home physical therapy. 7. Pain meds and anticoagulants per prescription. 8. Pain medication has potential to cause constipation. Increase oral fluid and fiber intake. Contact primary care provider if you have not had a bowel movement within 48 hours after discharge 9. No anti-inflammatory medication until discussed at first post operative visit, this including Motrin, Aleve, Mobic, Diclofenac. 10. Follow up in office at 2 weeks postop with Gilbert Keller PA-C / Neo Lange PA-C 11. Follow up with your primary care doctor 7-10 days after discharge. 12. Contact [facility] with any questions, . Keep incision clean, dry, intact. While showering, cover silver foam dressing was Saran wrap. Silver foam dressing may be removed in 7 days. Medications: Colace; [place] 7.5 mg/25 mg; aspirin 81 mg twice a day 30 days Discharge Disposition: HOME WITH HOME HEALTH SERVICES
[2021-06-22 11:16] LABS: Glucose,Whole Blood 191 mg/dL (75-99)
--- NOTE | 2021-06-22 12:15 | P.PN ---
Subjective Progress Note Date: 06/22/21 Principal diagnosis: Left hip osteoarthritis Patient seen at bedside this morning this lying semirecumbent in bed. Patient says most of his pain is localized to left hip over incision. Patient says he was up with physical therapy earlier this morning and walk down the hallway and up-and-down a couple steps. Patient says he does have walker at home. Patient says he is ready to go home today. Patient says he has not had bowel movement yet, however, patient says he has been passing gas. Patient says he has been using incentive however. Patient denies chest pain, fever, shortness breath, nausea, vomiting, change in vision, loss of bowel/bladder control. Objective - Vital Signs Vital signs: Vital Signs Temp 98.1 F 06/22/21 07:00 Pulse 80 06/22/21 07:00 Resp 16 06/22/21 07:00 BP 135/71 06/22/21 07:00 Pulse Ox 96 06/22/21 07:00 Intake & Output 06/21/21 06/22/21 06/22/21 18:59 06:59 18:59 Intake Total 1751 Output Total 200 Balance 1551 Weight 119.2 kg Intake: IV 1751 Output: Estimated Blood Loss 200 Other: Voiding Method Toilet Urinal # Voids 0 3 - Exam Left hip: Incision is clean, dry, and intact. The silver foam dressing is in good condition. There is minimal soft tissue swelling and ecchymosis surrounding the medial and lateral aspects of the incision. Calf is soft, no tenderness with palpation. Plantar flexion, dorsiflexion, EHL, FHL are intact. Sensory exam to light touch throughout the extremity is intact, dorsal pedis pulses 2+. - Labs CBC & Chem 7: 06/22/21 03:54 06/22/21 03:54 Labs: Abnormal Lab Results - Last 24 Hours (Table) 06/21/21 06/21/21 06/21/21 Range/Units 12:17 15:15 20:42 WBC (4.50-10.00) X 10*3/uL RBC (4.40-5.60) X 10*6/uL MCV (80.0-97.0) fL MCHC (32.0-37.0) g/dL MPV (9.5-12.2) fL Neutrophils # (1.80-7.70) X 10*3/uL Monocytes # (0.20-1.00) X 10*3/uL Eosinophils # (0.04-0.35) X 10*3/uL Glucose (70-110) mg/dL POC Glucose (mg/dL) 188 H 197 H 257 H (75-99) mg/dL 06/22/21 06/22/21 06/22/21 Range/Units 03:54 03:54 06:40 WBC 12.43 H (4.50-10.00) X 10*3/uL RBC 4.20 L (4.40-5.60) X 10*6/uL MCV 99.3 H (80.0-97.0) fL MCHC 31.4 L (32.0-37.0) g/dL MPV 9.3 L (9.5-12.2) fL Neutrophils # 9.68 H (1.80-7.70) X 10*3/uL Monocytes # 1.43 H (0.20-1.00) X 10*3/uL Eosinophils # 0.01 L (0.04-0.35) X 10*3/uL Glucose 159 H (70-110) mg/dL POC Glucose (mg/dL) 180 H (75-99) mg/dL Assessment and Plan Assessment: Left hip osteoarthritis Postoperative day #1 status post left total hip arthroplasty Plan: 1. Left hip osteoarthritis - left total hip arthroplasty performed yesterday, 06/21/2021. Patient stable this morning. Plan discharge home with health services 2. Appreciate medical management 3. Pain management - going home with [place] 4. DVT prophylaxis - going home with aspirin 81 mg twice a day 30 days 5. PT/OT - weightbearing as tolerated walker as needed 6. GI prophylaxis - going home with Colace 7. Encourage incentive spirometer use 8. Discharge planning - discharge home today with health services Time with Patient: Less than 30
[2021-06-22 12:52] VITALS: BP 120/71; PULSE 98; RESP 18
--- NOTE | 2021-06-22 17:55 | P.PN ---
Subjective Progress Note Date: 06/22/21 (delayed charting seen at 1130) Patient is a 75-year-old male with hypertension, diabetes, and osteoarthritis. Patient underwent left total anterior hip replacement. Patient seen and examined at bedside. He is doing well. No chest pain, shortness breath, nausea, vomiting. Has worked well with physical therapy. General: non toxic, no distress, appears at stated age Derm: warm, dry Head: atraumatic, normocephalic, symmetric Eyes: EOMI, no lid lag, anicteric sclera Mouth: no lip lesion, mucus membranes moist Cardiovascular: S1S2 reg, no murmur, positive posterior tibial pulse bilateral, Lungs: CTA bilateral, no rhonchi, no rales , no accessory muscle use Abdominal: soft, nontender to palpation, no guarding, no appreciable organomegaly Ext: no gross muscle atrophy, trace edema bilateral lower extremities, no contractures Neuro: CN II-XI grossly intact, no focal neuro deficits Psych: Alert, oriented, appropriate affect 75-year-old male status post direct anterior hip arthroplasty of the left Diabetes mellitus type 2 Dyslipidemia Hypertension -Patient is medically optimized for discharge -Home medication reconciliation is addressed. Patient to resume glipizide, lisinopril, and Zoloft as well as his other oral supplements and as needed medications. Objective - Vital Signs Vital signs: Vital Signs Temp 98.1 F 06/22/21 12:50 Pulse 98 06/22/21 12:50 Resp 18 06/22/21 12:50 BP 120/71 06/22/21 12:50 Pulse Ox 94 L 06/22/21 12:50 Intake & Output 06/21/21 06/22/21 06/22/21 18:59 06:59 18:59 Intake Total 1751 Output Total 200 Balance 1551 Weight 119.2 kg Intake: IV 1751 Output: Estimated Blood Loss 200 Other: Voiding Method Toilet Urinal # Voids 0 3 - Labs CBC & Chem 7: 06/22/21 03:54 06/22/21 03:54 Labs: Abnormal Lab Results - Last 24 Hours (Table) 06/21/21 06/22/21 06/22/21 Range/Units 20:42 03:54 03:54 WBC 12.43 H (4.50-10.00) X 10*3/uL RBC 4.20 L (4.40-5.60) X 10*6/uL MCV 99.3 H (80.0-97.0) fL MCHC 31.4 L (32.0-37.0) g/dL MPV 9.3 L (9.5-12.2) fL Neutrophils # 9.68 H (1.80-7.70) X 10*3/uL Monocytes # 1.43 H (0.20-1.00) X 10*3/uL Eosinophils # 0.01 L (0.04-0.35) X 10*3/uL Glucose 159 H (70-110) mg/dL POC Glucose (mg/dL) 257 H (75-99) mg/dL 06/22/21 06/22/21 Range/Units 06:40 11:04 WBC (4.50-10.00) X 10*3/uL RBC (4.40-5.60) X 10*6/uL MCV (80.0-97.0) fL MCHC (32.0-37.0) g/dL MPV (9.5-12.2) fL Neutrophils # (1.80-7.70) X 10*3/uL Monocytes # (0.20-1.00) X 10*3/uL Eosinophils # (0.04-0.35) X 10*3/uL Glucose (70-110) mg/dL POC Glucose (mg/dL) 180 H 191 H (75-99) mg/dL
== END 2021-06-22 13:02 | disposition home health service (06) ==
LOC: OR 11:02 → 4SSUR 17:13 → OR 06-22 13:02
PROVIDERS: ATTEND Orthopaedic Surgery
DX: M16.12 Unilateral primary osteoarthritis, left hip (principal); Z20.822 Contact with and (suspected) exposure to COVID-19; I10 Essential (primary) hypertension; E78.5 Hyperlipidemia, unspecified; E11.9 Type 2 diabetes mellitus without complications
CPT/HCPCS: 27130; 97162; 86900; 86901; 80048; 85025; 86850; 87635; 73501; J1100; J0690 ×2; J2405; J1170; 87070; 88300

== ENCOUNTER 2022-12-08 16:27 | Emergency (ER) | payer MEDICARE ==
[2022-12-08] MEDS ORDERED: DIPH,PERTUS(ACELL)TETVAC-LF 0.5 ML VIAL IM ONE (17:38)
[2022-12-08] MEDS ORDERED: LIDOCAINE 1% INJ 10MG/ML (30 ML VIAL-PF) SQ ONE (17:38)
--- NOTE | 2022-12-08 17:46 | ED ---
General Adult HPI - General Chief complaint: Wound/Laceration Stated complaint: Head Laceration Time Seen by Provider: 12/08/22 16:43 Source: patient, RN notes reviewed Mode of arrival: ambulatory Limitations: no limitations - History of Present Illness Initial comments: 77-year-old male presents emergency department chief complaint of forehead laceration. He states that he was working with a saw grinder earlier today when a piece broke off and hit him in the head. He has an approximately 5 cm laceration to his left-sided forehead. He states that it did not hit him very forcefully. He denies loss of consciousness, headache, dizziness, nausea, vomiting. He states he is not up to date on his tetanus vaccination. - Related Data Home Medications Medication Instructions Recorded Confirmed Ascorbic Acid [Vitamin C] 1,000 mg PO DAILY 06/13/17 06/14/21 Ibuprofen [Advil] 800 mg PO DIRECTED PRN 06/13/17 06/14/21 Bismuth Subsalicylate 262 mg PO DIRECTED PRN 05/31/21 06/14/21 [Pepto-Bismol] Multivit-Min/Folic/Vit K/Lycop 1 each PO DAILY 05/31/21 06/14/21 [Men's Multivitamin Tablet] Sertraline [Zoloft] 50 mg PO QAM 05/31/21 06/14/21 glipiZIDE [Glucotrol] 10 mg PO DAILY 05/31/21 06/21/21 guaiFENesin [Mucinex] 1,200 mg PO DIRECTED 05/31/21 06/21/21 lisinopriL 40 mg PO QAM 05/31/21 06/14/21 L.acidoph,Paracasei, B.lactis 1 dose PO DAILY 06/14/21 06/21/21 [Probiotic] Previous Rx's Medication Instructions Recorded Aspirin [Adult Low Dose Aspirin EC] 81 mg PO BID #60 tab 06/22/21 Docusate [Colace] 100 mg PO DAILY #30 capsule 06/22/21 HYDROcodone/APAP 7.5-325MG [[place] 1 each PO Q6HR PRN #28 tab 06/22/21 7.5] Cephalexin [Keflex] 500 mg PO Q6HR #28 cap 12/08/22 Allergies Allergy/AdvReac Type Severity Reaction Status Date / Time No Known Allergies Allergy Verified 12/08/22 16:39 Review of Systems ROS Statement: Those systems with pertinent positive or pertinent negative responses have been documented in the HPI. ROS Other: All systems not noted in ROS Statement are negative. Past Medical History Past Medical History: Diabetes Mellitus, Hyperlipidemia, Hypertension, Osteoarthritis (OA) Additional Past Medical History / Comment(s): Umbilical hernia History of Any Multi-Drug Resistant Organisms: None Reported Past Surgical History: Orthopedic Surgery Additional Past Surgical History / Comment(s): NOSE SURGERY., ANKLE SURGERY RIGHT ANKLE WITH SCREWS AND PLATES Past Anesthesia/Blood Transfusion Reactions: No Reported Reaction, Unable to Obtain Additional Past Anesthesia/Blood Transfusion Reaction / Comment(s): PT ADOPTED. Past Psychological History: Anxiety, Depression Smoking Status: Former smoker Past Alcohol Use History: Occasional Past Drug Use History: Marijuana - Past Family History Father Family Medical History: Cancer General Exam Limitations: no limitations General appearance: alert, in no apparent distress Head exam: Present: other (laceration to forehead) Eye exam: Present: normal appearance, PERRL, EOMI. Absent: scleral icterus, conjunctival injection, periorbital swelling ENT exam: Present: normal exam, mucous membranes moist Neck exam: Present: normal inspection, full ROM. Absent: tenderness, meningismus, lymphadenopathy Respiratory exam: Present: normal lung sounds bilaterally. Absent: respiratory distress, wheezes, rales, rhonchi, stridor Cardiovascular Exam: Present: regular rate, normal rhythm, normal heart sounds. Absent: systolic murmur, diastolic murmur, rubs, gallop, clicks Extremities exam: Present: normal inspection, full ROM, normal capillary refill. Absent: tenderness, pedal edema, joint swelling, calf tenderness Back exam: Present: normal inspection Neurological exam: Present: alert, oriented X3, CN II-XII intact, normal gait Psychiatric exam: Present: normal affect, normal mood Skin exam: Present: warm, dry, normal color, other (laceration to forehead) Course Vital Signs 12/08/22 12/08/22 16:37 19:09 Temperature 98.6 F 97.9 F Pulse Rate 95 69 Respiratory 18 16 Rate Blood Pressure 138/78 130/76 O2 Sat by Pulse 96 100 Oximetry Procedures - Laceration Laceration #1 Consent Obtained: verbal consent Indication: laceration Site: face Size (cm): 5 Description: linear Depth: simple, single layer Anesthetic Used: lidocaine 1% Anesthesia Technique: local infiltration Pre-repair: wound explored, irrigated extensively (500cc) Type of Sutures: other (monofilament) Size of Sutures: 5-0 Number of Sutures: 8 Technique: simple, interrupted Patient Tolerated Procedure: well, no complications Medical Decision Making - Medical Decision Making Was pt. sent in by a medical professional or institution (, ALLAN, CASH REGISTER OPERATOR, urgent care, hospital, or prison...) When possible be specific @ -No Did you speak to anyone other than the patient for history (EMS, parent, family, police, friend...)? What history was obtained from this source @ -No Did you review nursing and triage notes (agree or disagree)? Why? @ -I reviewed and agree with nursing and triage notes Were old charts reviewed (outside hosp., previous admission, EMS record, old EKG, old radiological studies, urgent care reports/EKG's, prison records)? Report findings @ -No old charts were reviewed Differential Diagnosis (chest pain, altered mental status, abdominal pain women, abdominal pain men, vaginal bleeding, weakness, fever, dyspnea, syncope, headache, dizziness, GI bleed, back pain, seizure, CVA, palpatations, mental health, musculoskeletal)? @ -Laceration, abrasion, this list is not all-inclusive EKG interpreted by me (3pts min.). @ -None X-rays interpreted by me (1pt min.). @ -None done CT interpreted by me (1pt min.). @ -None done U/S interpreted by me (1pt. min.). @ -None done What testing was considered but not performed or refused? (CT, X-rays, U/S, labs)? Why? @ -None What meds were considered but not given or refused? Why? @ -None Did you discuss the management of the patient with other professionals (professionals i.e. ALLAN Hinojosa, CASH REGISTER OPERATOR, lab, RT, psych nurse, social services counselor, cylinder dyer, teacher, collection officer, corrections caseworker)? Give summary @ -No Was smoking cessation discussed for >3mins.? @ -No Was critical care preformed (if so, how long)? @ -No Were there social determinants of health that impacted care today? How? (Homelessness, low income, unemployed, alcoholism, drug addiction, transportation, low edu. Level, literacy, decrease access to med. care, [facility], rehab)? @ -No Was there de-escalation of care discussed even if they declined (Discuss DNR or withdrawal of care, Hospice)? DNR status @ -No What co-morbidities impacted this encounter? (DM, HTN, Smoking, COPD, CAD, Cancer, CVA, ARF, Chemo, Hep., AIDS, mental health diagnosis, sleep apnea, morbid obesity)? @ -None Was patient admitted / discharged? Hospital course, mention meds given and route, prescriptions, significant lab abnormalities, going to OR and other pertinent info. @ -Discharged. Patient presented to the emergency department chief complaint of left-sided forehead laceration. Patient has about a 5 cm laceration to his forehead. He states that he is having her head but was not hit very forcefully, did not lose consciousness, is not having headache, vomiting, dizziness. Patient is not on any blood thinners. Laceration was extensively irrigated with about 500 mL of saline and repaired with 8 simple interrupted sutures. Patient stable at time of discharge. Strict return precautions discussed. Case discussed with my attending, Dr. Segovia Undiagnosed new problem with uncertain prognosis? @ -No Drug Therapy requiring intensive monitoring for toxicity (Heparin, Nitro, Insulin, Cardizem)? @ -No Were any procedures done? @ -No Diagnosis/symptom? @ -Forehead laceration Acute, or Chronic, or Acute on Chronic? @ -Acute Uncomplicated (without systemic symptoms) or Complicated (systemic symptoms)? @ -Uncomplicated Side effects of treatment? @ -No Exacerbation, Progression, or Severe Exacerbation? @ -No Poses a threat to life or bodily function? How? (Chest pain, [place], [place], pneumonia, PE, COPD, DKA, ARF, appy, cholecystitis, CVA, Diverticulitis, Homicidal, Suicidal, threat to staff... and all critical care pts) @ -No Disposition Clinical Impression: Laceration Disposition: HOME SELF-CARE Condition: Stable Instructions (If sedation given, give patient instructions): Care For Your Stitches (ED) Additional Instructions: Please follow up with your primary care provider or return to the emergency department for removal of stitches in around 5 days. Return to the emergency department for symptoms we discussed or any changes. Prescriptions: Cephalexin [Keflex] 500 mg PO Q6HR #28 cap Is patient prescribed a controlled substance at d/c from ED?: No Referrals: Sreedhar Loo MD [Primary Care Provider] - 1-2 days Time of Disposition: 18:51
[2022-12-08 19:11] VITALS: BP 130/76; PULSE 69; RESP 16; TEMP 97.9
== END 2022-12-08 19:11 | disposition home or self-care (01) ==
LOC: EC 16:27
DX: S01.81XA Laceration without foreign body of other part of head, initial encounter (principal); E11.9 Type 2 diabetes mellitus without complications; I10 Essential (primary) hypertension; M19.90 Unspecified osteoarthritis, unspecified site; F41.9 Anxiety disorder, unspecified; F32.A Depression, unspecified; F12.90 Cannabis use, unspecified, uncomplicated; Z87.891 Personal history of nicotine dependence; Z23 Encounter for immunization; Z79.899 Other long term (current) drug therapy; W26.8XXA Contact with other sharp object(s), not elsewhere classified, initial encounter
CPT/HCPCS: 90715; 99282; 90471; 12013; J2001